=== PATIENT | male | born 1980 | race Caucasian/White ===

== ENCOUNTER 2016-09-26 15:16 | Inpatient (IN) | payer OTHER ==
[2016-09-26 19:10] VITALS: BMI 30.9
--- NOTE | 2016-09-26 20:13 | HP ---
COWS - Scale Resting Pulse: 0= [place] 80 or Below Sweatin= Chills/Flushing Restless Observation: 1= Difficult to Sit Still Pupil Size: 1= Pupils >than Normal Bone or Joint Aches: 2= Severe Diffuse Aches Runny Nose/ Eye Tearin= Runny Nose/Eyes GI Upset > 30mins: 2= Nausea/Diarrhea Tremor Observation: 2= Slight Tremor Visible Yawning Observation: 1= 1-2x During Session Anxiety or Irritability: 2=Irritable/Anxious Goose Flesh Skin: 0=Smooth Skin COWS Score: 14 Admission [facility] Chief Complaint: WITHDRAWAL SX Allergies/Adverse Reactions: Allergies Allergy/AdvReac Type Severity Reaction Status Date / Time No Known Allergies Allergy Verified 09/26/16 20:21 History of Present Illness: 36 YEARS OLD MALE WITH LONG HISTORY OF OPIATE NICOTINE DEPENDENCE, DENIES MEDICAL ISSUE HAS BIPOLAR II IS ADMITTED TO DETOX Exam Limitations: No Limitations - Ebola screening Have you traveled outside of the country in the last 21 days: No Have you had contact with anyone from an Ebola affected area: No Have you been sick,other than usual withdrawal symptoms: No Do you have a fever: No - Review of Systems Constitutional: Chills, Changes in sleep, Weight Stable EENT: reports: No Symptoms Reported Respiratory: reports: No Symptoms reported Cardiac: reports: No Symptoms Reported GI: reports: Nausea, Poor Fluid Intake, Abdominal cramping : reports: No Symptoms Reported Musculoskeletal: reports: Back Pain, Neck Pain Integumentary: reports: Change in Color (RIGHT INNER ELBOW) Neuro: reports: Tremors Endocrine: reports: No Symptoms Reported Hematology: reports: No Symptoms Reported Psychiatric: reports: Judgement Intact, Orientated x3, Anxious Other Systems: Reviewed and Negative Patient History - Patient Medical History Hx Anemia: No Hx Asthma: No Hx Chronic Obstructive Pulmonary Disease (COPD): No Hx Cancer: No Hx Cardiac Disorders: No Hx Congestive Heart Failure: No Hx Hypertension: No Hx Hypercholesterolemia: No Hx Pacemaker: No HX Cerebrovascular Accident: No Hx Seizures: No Hx Dementia: No Hx Diabetes: No Hx Gastrointestinal Disorders: No Hx Liver Disease: No Hx Genitourinary Disorders: No Hx Sexually Transmitted Disorders: No Hx Renal Disease (ESRD): No Hx Thyroid Disease: No Hx Human Immunodeficiency Virus (HIV): No Hx Hepatitis C: No Hx Depression: No Hx Suicide Attempt: No Hx Bipolar Disorder: Yes Hx Schizophrenia: No - Patient Surgical History Past Surgical History: No - PPD History Previous Implant?: Yes Documented Results: Negative w/o proof Implanted On Prior R Admission?: No PPD to be Administered?: Yes - Smoking Cessation Smoking history: Current every day smoker Have you smoked in the past 12 months: Yes Aproximately how many cigarettes per day: 2 Cigars Per Day: 0 Hx Chewing Tobacco Use: No Initiated information on smoking cessation: Yes 'Breaking Loose' booklet given: 09/26/16 - Substance & Tx. History Hx Alcohol Use: No Hx Substance Use: Yes Substance Use Type: Marijuana, Opiates Hx Substance Use Treatment: Yes - Substances Abused Heroin Route: Injection Frequency: Daily Amount used: 14-15 BAGS Age of first use: 19 Date of Last Use: 09/26/16 Family Disease History - Family Disease History Family Disease History: Diabetes: Grandparent, Other: Father (BIPOLAR), Mother ( BIPOLAR) Admission Physical Exam S - Vital Signs Vital Signs: Vital Signs - 24 hr 09/26/16 19:08 Temperature 98.4 F Pulse Rate 73 Respiratory 20 Rate Blood Pressure 132/70 - Physical General Appearance: Yes: Appropriately Dressed, Mild Distress, Obese, Tremorous , Irritable, Sweating, Anxious HEENTM: Yes: Hearing grossly Normal, Normal ENT Inspection, Normocephalic, Normal Voice Respiratory: Yes: Chest Non-Tender, Lungs Clear, Normal Breath Sounds, No Respiratory Distress, No Accessory Muscle Use Neck: Yes: Supple, Trachea in good position Breast: Yes: Breasts Symetrical Cardiology: Yes: Regular Rhythm, Regular Rate, S1, S2 Abdominal: Yes: Non Tender, Soft Genitourinary: Yes: Within Normal Limits Back: Yes: Normal Inspection Musculoskeletal: Yes: full range of Motion, Gait Steady, Back pain, Muscle Pain Extremities: Yes: Normal Range of Motion, Non-Tender, Tremors Neurological: Yes: Fully Oriented, Alert, Motor Strength 5/5, Normal Response, Depressed Affect Integumentary: Yes: Warm, Track Macias Lymphatic: Yes: Within Normal Limits - Diagnostic (1) Opioid dependence with withdrawal Current Visit: Yes Status: Acute (2) Cannabis dependence, uncomplicated Current Visit: Yes Status: Chronic (3) Nicotine dependence Current Visit: Yes Status: Acute Qualifiers: Nicotine product type: cigarettes Substance use status: in withdrawal Qualified Code(s): F17.213 - Nicotine dependence, cigarettes, with withdrawal (4) Bipolar II disorder major depressive with melancholic features Current Visit: Yes Status: Resolved Cleared for Admission [facility] - Detox or Rehab [facility] Level of Care: Medically Managed Detox Regimen/Protocol: Methadone [facility] Breath Alcohol Content Breath Alcohol Content: 0 Urine Drug Screen - Control Is Test Valid: Yes - Results Drug Screen Negative: No Urine Drug Screen Results: THC-Marijuana, OPI-Opiates
[2016-09-26] MEDS ORDERED: diphenhydrAMINE HCL 50 MG CAPSULE PO PRN (20:26)
[2016-09-26] MEDS ORDERED: NICOTINE POLACRILEX 2 MG GUM BUC PRN (20:26)
[2016-09-26] MEDS ORDERED: guaiFENesin/D-METHORPHAN HB 10 ML UNIT-DOSE CUPS PO PRN (20:26)
[2016-09-26] MEDS ORDERED: ACETAMINOPHEN 325 MG TABLET (FP) PO PRN (20:26)
[2016-09-26] MEDS ORDERED: LOPERAMIDE HCL 2 MG CAPSULE PO PRN (20:26)
[2016-09-26] MEDS ORDERED: MENTHOL/PHENOL 1 EACH UD MM PRN (20:26)
[2016-09-26] MEDS ORDERED: MAGNESIUM HYDROX 2400MG/30ML ORAL SUSPENSION 30 ML CUP PO PRN (20:26)
[2016-09-26] MEDS ORDERED: NICOTINE 14 MG/24 HOURS TOPICAL PATCH TD PRN (20:26)
[2016-09-26] MEDS ORDERED: MAGNESIUM CITRATE 300 ML BOTTLE PO PRN (20:26)
[2016-09-26] MEDS ORDERED: P-EPHED 60MG/TRIPROLIDI 2.5MG TABLET PO PRN (20:26)
[2016-09-26] MEDS ORDERED: MAG HYDROX/AL HYDROX/SIMETH 30 ML UNIT-DOSE CUP PO PRN (20:26)
[2016-09-26] MEDS ORDERED: METHADONE HCL 10 MG TABLET (FOR DETOX USE ONLY) PO ONE ×2 (20:26→23:00)
[2016-09-26] MEDS ORDERED: METHADONE HCL 10 MG TABLET (FOR DETOX USE ONLY) ONE (22:50)
[2016-09-26] MEDS: diazePAM 5 MG TABLET PO PRN (23:03)
[2016-09-26] MEDS: THIAMINE HCL 100 MG TABLET (FP) PO SCH (23:06)
[2016-09-26] MEDS: IBUPROFEN 400 MG TABLET (FP) PO PRN (23:06)
[2016-09-27] MEDS: diazePAM 5 MG TABLET PO PRN ×2 (06:58→22:30)
--- NOTE | 2016-09-27 09:14 | PN ---
BHS COWS - Scale Resting Pulse: 0= [place] 80 or Below Sweatin=Flushed/Facial Moisture Restless Observation: 3= Extraneous Movement Pupil Size: 1= Pupils >than Normal Bone or Joint Aches: 2= Severe Diffuse Aches Runny Nose/ Eye Tearin= Runny Nose/Eyes GI Upset > 30mins: 3= Vomiting/Diarrhea Tremor Observation of Outstretched Hands: 2= Slight Tremor Visible Yawning Observation: 1= 1-2x During Session Anxiety or Irritability: 2=Irritable/Anxious Goose Flesh Skin: 0=Smooth Skin COWS Score: 18 BHS Progress Note (SOAP) Subjective: ALERT,IRRITABLE,ANXIOUS,INTERRUPTED SLEEP,TREMOR,PAIN IN THE BODY AND BACK Objective: 09/27/16 09:11 Vital Signs Temperature 98.1 F 09/27/16 06:00 Pulse Rate 57 L 09/27/16 06:00 Respiratory Rate 18 09/27/16 06:00 Blood Pressure 104/59 09/27/16 06:00 O2 Sat by Pulse Oximetry (%) EKG NSR NO CHEST PAIN,NO SOB,NO DIZZINESS 09/27/16 09:13 LABS PENDING Assessment: 09/27/16 09:13 WITHDRAWAL SYMPTOM Plan: CONTINUE DETOX
[2016-09-27] MEDS ORDERED: METHADONE HCL 10 MG TABLET (FOR DETOX USE ONLY) PO ONE (10:00)
[2016-09-27] MEDS: PRENATAL VITAMINS W/ FOLIC ACID TABLET (FP) PO SCH (10:07)
[2016-09-27] MEDS: CYCLOBENZAPRINE HCL 10 MG TABLET (FP) PO PRN (10:10)
[2016-09-27] MEDS: cloNIDine HCL 0.1 MG TABLET PO SCH ×2 (11:00→22:29)
[2016-09-27 11:37] LABS: MCHC 33.4 g/dl (32.0-35.9); MEAN CELL VOLUME 86.8 fl (80-96); MEAN PLT VOLUME 9.4 fl (7.5-11.1); PLATELET COUNT 186 K/MM3 (134-434); RDW 13.3 % (11.9-15.9); WHITE BLOOD COUNT 6.8 K/mm3 (4.0-10.0)
[2016-09-27 11:51] LABS: ALBUMIN 3.8 g/dl (3.4-5.0); ALK PHOS 60 U/L (45-117); ANION GAP 10 (8-16); BILIRUBIN,TOTAL 0.3 mg/dL (0.2-1.0); CO2 27 mmol/L (21-32); COCKROFT - GAULT 116.5; CREATININE 1.1 mg/dL (0.7-1.3); GLUCOSE,RANDOM 91 mg/dL (74-106); SGOT/AST 12 U/L (15-37); SGPT/ALT 14 U/L (12-78); TOT PROT 6.6 g/dl (6.4-8.2)
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
--- NOTE | 2016-09-27 13:57 | EKG ---
Test Reason : Blood Pressure : / mmHG Vent. Rate : 067 BPM Atrial Rate : 067 BPM P-R Int : 134 ms QRS Dur : 106 ms QT Int : 392 ms P-R-T Axes : 032 069 060 degrees QTc Int : 414 ms NORMAL SINUS RHYTHM INCOMPLETE RIGHT BUNDLE BRANCH BLOCK BORDERLINE ECG NO PREVIOUS ECGS AVAILABLE Confirmed by KATALINA VERAS, DINH ([id number]) on 09/27/2016 1:57:18 PM Referred By: Confirmed By:DINH DARDEN MD
[2016-09-27 14:52] LABS: URINE APPEARANCE CLEAR; URINE BILIRUBIN NEGATIVE (NEGATIVE); URINE BLOOD NEGATIVE (NEGATIVE); URINE COLOR YELLOW; URINE GLUCOSE (UA) NEGATIVE (NEGATIVE); URINE KETONE NEGATIVE (NEGATIVE); URINE NITRITE NEGATIVE (NEGATIVE); URINE UROBILINOGEN NEGATIVE E.U./dl (0.2-1.0)
[2016-09-27 14:55] LABS: URINE LEUK ESTERASE TRACE (NEGATIVE); URINE PROTEIN 1+ (NEGATIVE)
[2016-09-27 15:04] LABS: CALCIUM OXALATE CRYSTALS FEW /hpf (NONE SEEN); URINE MUCUS MANY; URINE RBC 3 /hpf (0-3); URINE WBC 3 /hpf (3-5)
[2016-09-27] MEDS: QUEtiapine FUMARATE 100 MG TABLET (FP) PO SCH (22:29)
[2016-09-27] MEDS: THIAMINE HCL 100 MG TABLET (FP) PO SCH (22:29)
--- NOTE | 2016-09-28 09:27 | PN ---
BHS COWS - Scale Resting Pulse: 0= [place] 80 or Below Sweatin= Chills/Flushing Restless Observation: 3= Extraneous Movement Pupil Size: 1= Pupils >than Normal Bone or Joint Aches: 2= Severe Diffuse Aches Runny Nose/ Eye Tearin= Runny Nose/Eyes GI Upset > 30mins: 3= Vomiting/Diarrhea Tremor Observation of Outstretched Hands: 2= Slight Tremor Visible Yawning Observation: 1= 1-2x During Session Anxiety or Irritability: 2=Irritable/Anxious Goose Flesh Skin: 0=Smooth Skin COWS Score: 17 BHS Progress Note (SOAP) Subjective: ALERT,IRRITABLE,ANXIOUS,INTERRUPTED SLEEP,TREMOR,PAIN IN THE BODY AND BACK Objective: 09/28/16 09:26 Vital Signs Temperature 96.3 F L 09/28/16 06:23 Pulse Rate 80 09/28/16 06:23 Respiratory Rate 18 09/28/16 06:23 Blood Pressure 112/75 09/28/16 06:23 O2 Sat by Pulse Oximetry (%) Assessment: 09/28/16 09:26 Laboratory Last Values WBC 6.8 K/mm3 (4.0-10.0) 09/27/16 07:50 RBC 4.89 M/mm3 (4.00-5.60) 09/27/16 07:50 Hgb 14.2 GM/dL (11.7-16.9) 09/27/16 07:50 Hct 42.5 % (35.4-49) 09/27/16 07:50 MCV 86.8 fl (80-96) 09/27/16 07:50 MCHC 33.4 g/dl (32.0-35.9) 09/27/16 07:50 RDW 13.3 % (11.9-15.9) 09/27/16 07:50 Plt Count 186 K/MM3 (134-434) 09/27/16 07:50 MPV 9.4 fl (7.5-11.1) 09/27/16 07:50 Sodium 144 mmol/L (136-145) 09/27/16 07:50 Potassium 3.9 mmol/L (3.5-5.1) 09/27/16 07:50 Chloride 107 mmol/L (98-107) 09/27/16 07:50 Carbon Dioxide 27 mmol/L (21-32) 09/27/16 07:50 Anion Gap 10 (8-16) 09/27/16 07:50 BUN 9 mg/dL (7-18) 09/27/16 07:50 Creatinine 1.1 mg/dL (0.7-1.3) 09/27/16 07:50 Creat Clearance w eGFR > 60 (>60) 09/27/16 07:50 Random Glucose 91 mg/dL (74-106) 09/27/16 07:50 Calcium 9.0 mg/dL (8.5-10.1) 09/27/16 07:50 Total Bilirubin 0.3 mg/dL (0.2-1.0) 09/27/16 07:50 AST 12 U/L (15-37) L 09/27/16 07:50 ALT 14 U/L (12-78) 09/27/16 07:50 Alkaline Phosphatase 60 U/L (45-117) 09/27/16 07:50 Total Protein 6.6 g/dl (6.4-8.2) 09/27/16 07:50 Albumin 3.8 g/dl (3.4-5.0) 09/27/16 07:50 Urine Color Yellow 09/27/16 11:00 Urine Appearance Clear 09/27/16 11:00 Urine pH 5.0 (5.0-8.0) 09/27/16 11:00 Ur Specific [place] 1.032 (1.001-1.035) 09/27/16 11:00 Urine Protein 1+ (NEGATIVE) H 09/27/16 11:00 Urine Glucose (UA) Negative (NEGATIVE) 09/27/16 11:00 Urine Ketones Negative (NEGATIVE) 09/27/16 11:00 Urine Blood Negative (NEGATIVE) 09/27/16 11:00 Urine Nitrite Negative (NEGATIVE) 09/27/16 11:00 Urine Bilirubin Negative (NEGATIVE) 09/27/16 11:00 Urine Urobilinogen Negative E.U./dl (0.2-1.0) 09/27/16 11:00 Ur Leukocyte Esterase Trace (NEGATIVE) H 09/27/16 11:00 Urine RBC 3 /hpf (0-3) 09/27/16 11:00 Urine WBC 3 /hpf (3-5) 09/27/16 11:00 Calcium Oxalate Crystal Few /hpf (NONE SEEN) 09/27/16 11:00 Urine Mucus Many 09/27/16 11:00 RPR Titer Nonreactive (NONREACTIVE) 09/27/16 07:50 09/28/16 09:27 WITHDRAWAL SYMPTOM Plan: CONTINUE DETOX
[2016-09-28] MEDS ORDERED: METHADONE HCL 5 MG TABLET (FOR DETOX USE ONLY) PO ONE (10:00)
[2016-09-28] MEDS: PRENATAL VITAMINS W/ FOLIC ACID TABLET (FP) PO SCH (10:06)
[2016-09-28] MEDS: cloNIDine HCL 0.1 MG TABLET PO SCH ×2 (10:06→22:27)
[2016-09-28] MEDS: SERTRALINE HCL 50 MG TABLET (FP) PO SCH (10:06)
[2016-09-28] MEDS: CYCLOBENZAPRINE HCL 10 MG TABLET (FP) PO PRN (10:09)
[2016-09-28] MEDS: diazePAM 5 MG TABLET PO PRN ×2 (10:09→22:27)
[2016-09-28] MEDS: THIAMINE HCL 100 MG TABLET (FP) PO SCH (22:27)
[2016-09-28] MEDS: QUEtiapine FUMARATE 100 MG TABLET (FP) PO SCH (22:28)
--- NOTE | 2016-09-29 08:44 | PN ---
S Progress Note (SOAP) Subjective: alert,irritable,anxious,interrupted sleep,pain in the body and back Objective: 09/29/16 08:43 Vital Signs Temperature 98.1 F 09/29/16 06:30 Pulse Rate 83 09/29/16 06:30 Respiratory Rate 18 09/29/16 06:30 Blood Pressure 112/67 09/29/16 06:30 O2 Sat by Pulse Oximetry (%) Assessment: 09/29/16 08:44 withdrawal symptom Plan: continue detox
[2016-09-29] MEDS ORDERED: METHADONE HCL 5 MG TABLET (FOR DETOX USE ONLY) PO ONE (10:00)
[2016-09-29] MEDS: cloNIDine HCL 0.1 MG TABLET PO SCH ×2 (10:16→22:23)
[2016-09-29] MEDS: SERTRALINE HCL 50 MG TABLET (FP) PO SCH (10:16)
[2016-09-29] MEDS: PRENATAL VITAMINS W/ FOLIC ACID TABLET (FP) PO SCH (10:16)
[2016-09-29] MEDS: CYCLOBENZAPRINE HCL 10 MG TABLET (FP) PO PRN ×2 (10:18→22:25)
[2016-09-29] MEDS: diazePAM 5 MG TABLET PO PRN (10:18)
[2016-09-29] MEDS: IBUPROFEN 400 MG TABLET (FP) PO PRN (13:27)
[2016-09-29] MEDS: QUEtiapine FUMARATE 100 MG TABLET (FP) PO SCH (22:23)
[2016-09-29] MEDS: THIAMINE HCL 100 MG TABLET (FP) PO SCH (22:24)
--- NOTE | 2016-09-30 09:46 | PN ---
S Progress Note (SOAP) Subjective: ALERT,IRRITABLE,ANXIOUS,INTERRUPTED SLEEP Objective: 09/30/16 09:45 Vital Signs Temperature 97.2 F L 09/30/16 06:00 Pulse Rate 60 09/30/16 06:00 Respiratory Rate 18 09/30/16 06:00 Blood Pressure 93/52 09/30/16 06:00 O2 Sat by Pulse Oximetry (%) Assessment: 09/30/16 09:45 WITHDRAWAL SYMPTOM Plan: CONTINUE DETOX,DISCHARGE IN AM
[2016-09-30] MEDS ORDERED: METHADONE HCL 10 MG TABLET (FOR DETOX USE ONLY) PO ONE (10:00)
[2016-09-30] MEDS: PRENATAL VITAMINS W/ FOLIC ACID TABLET (FP) PO SCH (10:28)
[2016-09-30] MEDS: cloNIDine HCL 0.1 MG TABLET PO SCH (10:28)
[2016-09-30] MEDS: SERTRALINE HCL 50 MG TABLET (FP) PO SCH (10:28)
[2016-09-30] MEDS: CYCLOBENZAPRINE HCL 10 MG TABLET (FP) PO PRN (10:29)
[2016-09-30] MEDS: IBUPROFEN 400 MG TABLET (FP) PO PRN (10:29)
[2016-09-30 11:09] VITALS: BP 116/78; PULSE 79; TEMP 97.7
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
[2016-10-01] MEDS ORDERED: METHADONE HCL 5 MG TABLET (FOR DETOX USE ONLY) PO ONE (06:00)
== END 2016-09-30 13:41 | disposition home or self-care (01) | DRG 773 ==
LOC: YASAS 15:16 → Y6N 21:29
PROVIDERS: ADMIT Internal Medicine Addiction Medicine; ATTEND Internal Medicine Addiction Medicine
PROC: HZ2ZZZZ Detoxification Services for Substance Abuse Treatment (ICD-10-PCS; principal; 2016-09-30)
DX: F11.23 Opioid dependence with withdrawal (principal); F12.20 Cannabis dependence, uncomplicated; F17.213 Nicotine dependence, cigarettes, with withdrawal; F19.24 Other psychoactive substance dependence with psychoactive substance-induced mood disorder; F31.81 Bipolar II disorder; G47.00 Insomnia, unspecified
CPT/HCPCS: 36415; 80053; 81003; 81015; 85027; 86593; 93005; 93010